=== PATIENT | male | born 1955 | race Caucasian/White ===

== ENCOUNTER 2018-09-13 06:40 | Day surgery (SDC) | payer BC ==
[2018-09-13] MEDS: SOD CHLORIDE 0.45% 1,000 ML IV (07:30)
[2018-09-13 07:37] LABS: ADD MAN DIFF? NO
[2018-09-13 07:40] LABS: BASOPHIL # 0.1 10^3/ul (0.0-0.1); BASOPHILS % 0.5 % (0.0-2.0); EOSINOPHILS # 0.3 10^3/ul (0.0-0.5); EOSINOPHILS % 2.5 % (0.0-7.0); HEMATOCRIT 44.7 % (42.0-52.0); HEMOGLOBIN 14.9 g/dl (14.0-18.0); LYMPHOCYTES # 4.2 10^3/ul (0.8-2.9); LYMPHOCYTES % 38.3 % (15.0-51.0); MEAN CORPUSCULAR HEMOGLOBIN 29.4 pg (29.0-33.0); MEAN CORPUSCULAR HGB CONC 33.3 g/dl (32.0-37.0); MEAN CORPUSCULAR VOLUME 88.3 fl (82.0-101.0); MEAN PLATELET VOLUME 9.4 fl (7.4-10.4); MONOCYTE # 0.7 10^3/ul (0.3-0.9); MONOCYTES % 6.8 % (0.0-11.0); NEUTROPHIL # 5.6 10^3/ul (1.6-7.5); NEUTROPHILS % 51.3 % (39.0-77.0); PLATELET COUNT 287 10^3/UL (140-415); RED BLOOD COUNT 5.06 10^6/ul (4.70-6.10); RED CELL DISTRIBUTION WIDTH 12.6 % (11.5-14.5)
[2018-09-13 07:40] LABS: WHITE BLOOD COUNT 10.9 10^3/ul (4.8-10.8)
[2018-09-13 07:58] LABS: ALANINE AMINOTRANSFERASE 27 IU/L (13-69); ALBUMIN 4.2 g/dl (3.3-4.9); ALBUMIN/GLOBULIN RATIO 1.35; ALKALINE PHOSPHATASE 82 IU/L (42-121); ANION GAP 8 (5-13); ASPARTATE AMINO TRANSFERASE 25 IU/L (15-46); BILIRUBIN,INDIRECT 0.7 mg/dl (0-1.1); BILIRUBIN,TOTAL 0.7 mg/dl (0.2-1.3); BLOOD UREA NITROGEN 18 mg/dl (7-20); CARBON DIOXIDE 24 mmol/L (21-31); CHLORIDE 111 mmol/L (97-110); CHOL/HDL RATIO 3.2 RATIO; CHOLESTEROL 129 mg/dl (100-200); CREATININE 0.92 mg/dl (0.61-1.24); Estimated GFR > 60 mL/min (>60); GLUCOSE 102 mg/dl (70-220); HDL CHOLESTEROL 40 mg/dl (30-78); LDL CHOLESTEROL,CALCULATED 64 mg/dl; POTASSIUM 4.4 mmol/L (3.5-5.1); SODIUM 143 mmol/L (135-144); TOTAL PROTEIN 7.3 g/dl (6.1-8.1); TRIGLYCERIDES 127 mg/dl (0-149)
[2018-09-13 07:59] LABS: INR 0.87; PROTIME 11.9 Sec (11.9-14.9); PT RATIO 0.9
[2018-09-13] MEDS: DIPHENHYDRAMINE 50 MG CAP PO (09:06)
[2018-09-13] MEDS: DIAZEPAM 5 MG TAB PO (09:06)
[2018-09-13] MEDS: FAMOTIDINE 20 MG TAB PO (09:06)
[2018-09-13] MEDS ORDERED: LIDOCAINE 1% (MDV) 20 ML INJ ×2 (09:16→10:00)
[2018-09-13] MEDS ORDERED: IODIXANOL LOCM 100 ML BTL (09:16)
[2018-09-13] MEDS ORDERED: HEPARIN 1000 UNITS/ML 10 ML INJ (09:16)
[2018-09-13] MEDS ORDERED: MIDAZOLAM 1 MG/ML 2 ML INJ (09:16)
[2018-09-13] MEDS ORDERED: FENTAnyl 50 MCG/ML VIAL (09:16)
[2018-09-13] MEDS ORDERED: VERAPAMIL 5 MG INJ (09:16)
[2018-09-13] MEDS ORDERED: NITROGLYCERIN (IC) 100 MCG/ML INJ (09:17)
[2018-09-13] MEDS ORDERED: SOD CHLORIDE 0.9% 1,000 ML IV (10:46)
[2018-09-13] MEDS: ACETAMINOPHEN 325 MG TAB PO (11:09)
[2018-09-13] MEDS: morphine 2 MG INJ IV ×2 (11:10→13:26)
[2018-09-13] MEDS ORDERED: HYDROCODONE/APAP (5/325) TAB PO (14:00)
== END 2018-09-13 17:16 | disposition home or self-care (01) ==
LOC: CCL 06:40 → SDS 06:40 → CCL 17:16
DX: I25.10 Atherosclerotic heart disease of native coronary artery without angina pectoris (principal); I10 Essential (primary) hypertension; E78.00 Pure hypercholesterolemia, unspecified; Z79.82 Long term (current) use of aspirin
CPT/HCPCS: 71045; 80053; 80061; 85025; 85610; 85730; 93005; 93458